=== PATIENT | female | born 1935 | race Caucasian/White ===

== ENCOUNTER → 2017-02-28 | Outpatient (CLI) | payer MEDICARE, OTHER ==
[~2017-02-28] MED LIST: ALTACE 2.5MG T2.5 MG PO; AMBIENPAK5 MG PO; ASPIRIN E.C. 8181 MG PO; ATIVAN1 MG PO; BENADRYL 50MG C50 MG PO; CALCIUM 600 PLU1 TAB PO; CARDI-OMEGA1000 MG PO; FOSAMAX PO; ONE DAILY1 TA1 PO; PREVACID 30MG30 M1 PO; RHINOCORT0.032 MG/1 NS; SYNTHROID0.05 MG PO; ULTRAM50 MG PO; VISION FORMULA1 TAB PO; VITAMIN C BUFF500 MG PO; VITAMIN E1000 U/CAP PO; ZOCOR40 MG PO; ZOLOFT 100MG100 MG PO; ZYPREXA2.5 MG PO
== END ==
LOC: MC.RAD 13:14
DX: Z12.31 Encounter for screening mammogram for malignant neoplasm of breast (principal)

== ENCOUNTER 2017-04-09 13:00 | Outpatient (RCR) | payer MEDICARE, OTHER | END 2017-04-24 11:22 | disposition home or self-care (01) | LOC: WSPT 13:00 | DX: M48.062 Spinal stenosis, lumbar region with neurogenic claudication (principal); R53.1 Weakness; M41.86 Other forms of scoliosis, lumbar region | CPT/HCPCS: G8978-GP; G8979-GP ==

== ENCOUNTER → 2017-07-20 | Outpatient (CLI) | payer MEDICARE, OTHER | LOC: COL.VAS 09:19 | DX: M47.816 Spondylosis without myelopathy or radiculopathy, lumbar region (principal); M41.86 Other forms of scoliosis, lumbar region; I65.22 Occlusion and stenosis of left carotid artery; M48.061 Spinal stenosis, lumbar region without neurogenic claudication ==

== ENCOUNTER → 2018-07-29 | Outpatient (CLI) | payer MEDICARE, OTHER ==
[~2018-07-29] VITALS: Ht 154.9 cm; Wt 72.8 kg
[~2018-07-29] MED LIST changes: +AMITIZA24 MCG PO; +CARAFATE 1GM1 G PO; +CENTRUM SILVER1 CTB PO; +CYMBALTA 30MG30 MG PO; +DEXILANT60 MG PO; +EPA FISH OIL1 SGL PO; +FLONASEALLERGY NS; +NATURAL E400 IU PO; +PROLIA60 MG/ML SQ; +SYNTHROID0.088 MG/T PO; +SYSTANE 0.3-0.1 EACH OP; +VITAMIN D31000 I1 PO
[2018-07-29 11:56] VITALS: BP 130/78; PULSE 77; TEMP 98
== END ==
LOC: EUO 08:00
DX: M81.0 Age-related osteoporosis without current pathological fracture (principal)
CPT/HCPCS: J0897

== ENCOUNTER → 2020-02-13 | Outpatient (REF) | LOC: ZLAB.WCH 10:37 | DX: R19.4 Change in bowel habit (principal) ==

== ENCOUNTER → 2021-06-15 | Outpatient (CLI) | payer MEDICARE, OTHER ==
[2021-06-15 09:57] LABS: ALBUMIN 3.5 gm/dL (3.4-4.8); BILIRUBIN,TOTAL 0.3 mg/dL (0.2-1.2); CALCIUM 8.8 mg/dL (8.4-10.2); CHOLESTEROL RISK RATIO 2.7; CREATININE, serum 1.3 mg/dL (0.57-1.11); POTASSIUM 4.5 mmol/L (3.5-4.5); TOTAL PROTEIN 6.1 gm/dL (6.2-8.1)
[2021-06-15 09:59] LABS: BASO % 0.9 % (0.0-2.0); EOS # 0.1 K/mm3 (0.0-0.7); EOS % 2.9 % (0.0-4.0); GRAN # 2.3 K/mm3 (1.4-6.5); GRAN % 52.4 % (42.2-75.2); HEMATOCRIT 32.7 % (37.0-47.0); HEMOGLOBIN 10.7 g/dl (12.5-16.0); LYMPH # 1.6 K/mm3 (1.2-3.4); LYMPH % 35.2 % (20.0-51.0); MEAN CELL VOLUME 90 fl (80.0-100.0); MEAN CORPUSCULAR HEMOGLOBIN 29 pg (27-31); MEAN CORPUSCULAR HGB CONC 33 g/dl (33.0-37.0); MEAN PLATELET VOLUME 10.7 fl (7.4-10.4); MONO # 0.4 K/mm3 (0.1-0.6); MONO % 8.4 % (1.7-9.3); PLATELET COUNT 213 K/mm3 (130-400); RED BLOOD COUNT 3.65 M/mm3 (4.10-5.30); REDCELL DISTRIBUTION WIDTH-CV 13.3 % (11.5-14.5)
[2021-06-15 10:17] LABS: THYROID STIMULATING HORMONE 0.986 uIU/mL (0.350-4.940)
== END ==
LOC: ZCOL.LAB 09:40
PROVIDERS: Internal Medicine
DX: R73.9 Hyperglycemia, unspecified (principal); E78.2 Mixed hyperlipidemia; E03.9 Hypothyroidism, unspecified

== ENCOUNTER → 2021-11-03 | Outpatient (CLI) | payer MEDICARE, OTHER | LOC: COL.RAD 13:38 | DX: M25.551 Pain in right hip (principal) | CPT/HCPCS: J3301; Q9967 ==

== ENCOUNTER → 2021-11-28 | Outpatient (CLI) | payer MEDICARE, OTHER ==
[2021-11-28 16:31] LABS: BASO # 0.1 K/mm3 (0.0-0.2); BASO % 0.8 % (0.0-2.0); EOS # 0.3 K/mm3 (0.0-0.7); EOS % 4.2 % (0.0-4.0); GRAN # 5.4 K/mm3 (1.4-6.5); GRAN % 69.2 % (42.2-75.2); HEMOGLOBIN 11.3 g/dl (12.5-16.0); LYMPH # 1.2 K/mm3 (1.2-3.4); LYMPH % 15.8 % (20.0-51.0); MEAN CELL VOLUME 92 fl (80.0-100.0); MEAN CORPUSCULAR HEMOGLOBIN 29 pg (27-31); MEAN CORPUSCULAR HGB CONC 32 g/dl (33.0-37.0); MEAN PLATELET VOLUME 10.2 fl (7.4-10.4); MONO # 0.8 K/mm3 (0.1-0.6); MONO % 9.7 % (1.7-9.3); PLATELET COUNT 280 K/mm3 (130-400); RED BLOOD COUNT 3.84 M/mm3 (4.10-5.30)
[2021-11-28 16:39] LABS: HEMATOCRIT 35.2 % (37.0-47.0)
[2021-11-28 16:42] LABS: CALCIUM 8.8 mg/dL (8.4-10.2); CREATININE, serum 1.09 mg/dL (0.57-1.11)
== END ==
LOC: ZCOL.LAB 15:27
PROVIDERS: Internal Medicine
DX: I10 Essential (primary) hypertension (principal); D64.9 Anemia, unspecified; R60.9 Edema, unspecified

== ENCOUNTER → 2022-06-14 | Outpatient (REF) | payer MEDICARE, OTHER ==
[~2022-06-14] MED LIST changes: +DESYREL 50MG50 MG PO; +LASIX 40MG TABL40 MG PO; +TOPROL XL 25MG25 MG PO; +TYLENOL SU650 MG/SUP RC
[2022-06-14 13:21] LABS: CALCIUM 8.9 mg/dL (8.4-10.2); CREATININE, serum 1.05 mg/dL (0.57-1.11); POTASSIUM 4.1 mmol/L (3.5-4.5)
== END ==
LOC: ZCOL.LAB 12:32
PROVIDERS: Family Medicine
DX: R73.9 Hyperglycemia, unspecified (principal)

== ENCOUNTER → 2022-11-22 | Outpatient (CLI) | payer MEDICARE, OTHER ==
[2022-11-22 10:01] LABS: BASO # 0.1 K/mm3 (0.0-0.2); EOS # 0.4 K/mm3 (0.0-0.7); EOS % 7.1 % (0.0-4.0); GRAN # 2.3 K/mm3 (1.4-6.5); GRAN % 47.4 % (42.2-75.2); HEMATOCRIT 32.5 % (37.0-47.0); HEMOGLOBIN 10.4 g/dl (12.5-16.0); LYMPH # 1.6 K/mm3 (1.2-3.4); LYMPH % 32.5 % (20.0-51.0); MEAN CELL VOLUME 93 fl (80.0-100.0); MEAN CORPUSCULAR HEMOGLOBIN 30 pg (27-31); MEAN CORPUSCULAR HGB CONC 32 g/dl (33.0-37.0); MEAN PLATELET VOLUME 10.1 fl (7.4-10.4); MONO # 0.6 K/mm3 (0.1-0.6); MONO % 11.8 % (1.7-9.3); PLATELET COUNT 262 K/mm3 (130-400); RED BLOOD COUNT 3.51 M/mm3 (4.10-5.30); REDCELL DISTRIBUTION WIDTH-CV 13.5 % (11.5-14.5)
[2022-11-22 10:47] LABS: ALBUMIN 3.4 gm/dL (3.4-4.8); BILIRUBIN,TOTAL 0.3 mg/dL (0.2-1.2); CALCIUM 8.9 mg/dL (8.4-10.2); CHOLESTEROL RISK RATIO 3.4; CREATININE, serum 1.2 mg/dL (0.57-1.11); POTASSIUM 4.9 mmol/L (3.5-4.5); TOTAL PROTEIN 6.3 gm/dL (6.2-8.1)
[2022-11-22 11:06] LABS: TSH w REFLEX 3.522 uIU/mL (0.350-4.940)
== END ==
LOC: ZCOL.LAB 09:54
PROVIDERS: Internal Medicine
DX: I10 Essential (primary) hypertension (principal); E78.2 Mixed hyperlipidemia; E03.9 Hypothyroidism, unspecified; R73.9 Hyperglycemia, unspecified

== ENCOUNTER → 2022-12-12 | Outpatient (CLI) | payer MEDICARE, OTHER ==
[2022-12-12 11:33] LABS: CALCIUM 9.1 mg/dL (8.4-10.2); CREATININE, serum 1.36 mg/dL (0.57-1.11); POTASSIUM 4.4 mmol/L (3.5-4.5)
== END ==
LOC: ZCOL.LAB 11:11
PROVIDERS: Internal Medicine
DX: E78.2 Mixed hyperlipidemia (principal)

== ENCOUNTER → 2023-03-29 | Outpatient (REF) | payer MEDICARE ==
[2023-03-29 16:43] LABS: HEMOGLOBIN 11.5 g/dl (12.5-16.0); MEAN CELL VOLUME 92 fl (80.0-100.0); MEAN CORPUSCULAR HEMOGLOBIN 30 pg (27-31); MEAN CORPUSCULAR HGB CONC 32 g/dl (33.0-37.0); PLATELET COUNT 252 K/mm3 (130-400); REDCELL DISTRIBUTION WIDTH-CV 13.2 % (11.5-14.5)
[2023-03-29 16:44] LABS: HEMATOCRIT 35.7 % (37.0-47.0)
[2023-03-29 16:45] LABS: CALCIUM 9.2 mg/dL (8.4-10.2); CREATININE, serum 1.36 mg/dL (0.57-1.11); POTASSIUM 4.8 mmol/L (3.5-4.5)
== END ==
LOC: ZCOL.LAB 15:31
PROVIDERS: Internal Medicine
DX: N18.32 Chronic kidney disease, stage 3b (principal)

== ENCOUNTER → 2023-06-23 | Outpatient (CLI) | payer MEDICARE ==
[2023-06-23 12:53] LABS: COLLECTION METHOD CLEAN CATCH
[2023-06-23 13:03] LABS: URINE APPEARANCE CLEAR (CLEAR/HAZY); URINE BLOOD NEGATIVE (NEGATIVE); URINE COLOR YELLOW (YELLOW); URINE GLUCOSE NEGATIVE (NEGATIVE); URINE KETONE NEGATIVE (NEGATIVE); URINE NITRATE NEGATIVE (NEGATIVE); URINE PROTEIN(semi-quant) NEGATIVE (NEGATIVE); URINE UROBILINOGEN 0.2 E.U/dL (0.2-1.0)
== END ==
LOC: ZCOL.LAB 12:42
PROVIDERS: Nurse Practitioner Family
DX: N39.0 Urinary tract infection, site not specified (principal)